=== PATIENT | female | born 1955 | race Caucasian/White ===

== ENCOUNTER 2017-06-13 12:49 | Day surgery (SDC) | payer OTHER ==
[~2017-06-13] VITALS: Ht 157.5 cm; Wt 74.1 kg
[~2017-06-13 12:49] MED LIST: IBUP400; NAPR250; Prilosec Otc20 MG; Voltaren100 GM TP
== END 2017-06-13 15:37 | disposition home or self-care (01) ==
LOC: ORSCSDS 12:49
PROVIDERS: Internal Medicine Gastroenterology
PROC: 0DB58ZX Excision of Esophagus, Via Natural or Artificial Opening Endoscopic, Diagnostic (ICD-10-PCS; principal; 2017-06-13 14:30)
PROC: 0D5H8ZZ Destruction of Cecum, Via Natural or Artificial Opening Endoscopic (ICD-10-PCS; principal; 2017-06-13 14:30)
PROC: 0DB68ZX Excision of Stomach, Via Natural or Artificial Opening Endoscopic, Diagnostic (ICD-10-PCS; principal; 2017-06-13 14:30)
DX: K62.5 Hemorrhage of anus and rectum (principal); Q27.33 Arteriovenous malformation of digestive system vessel; K64.8 Other hemorrhoids; K29.50 Unspecified chronic gastritis without bleeding; B96.81 Helicobacter pylori [H. pylori] as the cause of diseases classified elsewhere; K20.9 Esophagitis, unspecified; R10.13 Epigastric pain; Z87.891 Personal history of nicotine dependence
CPT/HCPCS: 88305; 88342; J7120

== ENCOUNTER → 2020-02-06 | Outpatient (CLI) | payer OTHER ==
[~2020-02-06] MED LIST changes: +ACET325 PO; +AMOCLA875 PO; +ATOR40TA PO; +Aspir 8181 MG PO; +COQ-10100 MG PO; +HYDSUL200 PO; +MELATONIN5 M1 PO; +MELO7.5 PO; +METO50ER PO; +Norco 5-325 Ta1 EACH PO; -Prilosec Otc20 MG; +Prilosec Otc20 MG PO; +TIZA4 PO
[2020-02-10 05:51] LABS: Stool Occult Bld Immuno 1 Negative (NEGATIVE)
== END | disposition home or self-care (01) ==
LOC: LAB SHORT 13:50 → LAB 13:50
PROVIDERS: Internal Medicine
DX: D64.9 Anemia, unspecified (principal)
CPT/HCPCS: 82274

== ENCOUNTER → 2023-03-28 | Outpatient (CLI) | payer MEDICARE, BC | LOC: LAB 08:21 → LAB SHORT 08:21 | DX: N39.0 Urinary tract infection, site not specified (principal) | CPT/HCPCS: 87086 ==

== ENCOUNTER → 2023-06-24 | Outpatient (CLI) | payer MEDICARE, BC | LOC: LAB SHORT 13:04 → LAB 13:04 | DX: R30.0 Dysuria (principal) | CPT/HCPCS: 87077; 87086; 87186 ==

== ENCOUNTER → 2023-07-09 | Outpatient (CLI) | payer MEDICARE, BC | LOC: LAB SHORT 08:09 → LAB 08:09 | DX: B35.1 Tinea unguium (principal); L60.2 Onychogryphosis | CPT/HCPCS: 88305; 88312 ==

== ENCOUNTER 2024-01-08 06:22 | Day surgery (SDC) | payer MEDICARE, BC ==
[~2024-01-08] VITALS: Ht 157.5 cm; Wt 76.1 kg
[~2024-01-08 06:22] MED LIST changes: +FERSU300 PO; +METO100ER PO; +Nexium40 MG PO; +ONDA4ODT MM
[2024-01-08] MEDS ORDERED: ERGO400 (07:21)
[2024-01-08] MEDS ORDERED: ALUM-MAG HYDROX30 M1 (07:21)
[2024-01-08] MEDS ORDERED: Lactated Ringer's 1,000 ML IV ONE ×2 (07:47→07:55)
[2024-01-08] MEDS ORDERED: propofoL 50 ML IV ONE (07:47)
[2024-01-08 09:13] VITALS: BP 117/92
== END 2024-01-08 09:10 | disposition home or self-care (01) ==
LOC: ORSCSDS 06:22
PROVIDERS: Surgery
PROC: 0DB68ZX Excision of Stomach, Via Natural or Artificial Opening Endoscopic, Diagnostic (ICD-10-PCS; principal; 2024-01-08 08:00)
PROC: 0DJD8ZZ Inspection of Lower Intestinal Tract, Via Natural or Artificial Opening Endoscopic (ICD-10-PCS; principal; 2024-01-08 08:00)
DX: D50.9 Iron deficiency anemia, unspecified (principal); R10.9 Unspecified abdominal pain; I10 Essential (primary) hypertension; Z79.82 Long term (current) use of aspirin; Z79.899 Other long term (current) drug therapy
CPT/HCPCS: 88305; 88342; J2704; J7120

== ENCOUNTER → 2024-03-22 | Outpatient (CLI) | payer MEDICARE, BC ==
[~2024-03-22] MED LIST changes: +ALUM-MAG HYDROX30 M1; +ERGO400
== END | disposition home or self-care (01) ==
LOC: LAB 11:40 → LAB SHORT 11:40
DX: R30.0 Dysuria (principal)
CPT/HCPCS: 87086

== ENCOUNTER → 2024-05-31 | Outpatient (CLI) | payer MEDICARE, BC | END | disposition home or self-care (01) | LOC: LAB SHORT 09:00 → LAB 09:00 | DX: R30.0 Dysuria (principal) | CPT/HCPCS: 87086 ==

== ENCOUNTER → 2024-07-24 | Outpatient (CLI) | payer MEDICARE, BC ==
[2024-07-24 12:36] LABS: Stool Occult Bld Immuno 1 Negative (NEGATIVE)
== END ==
LOC: LAB SHORT 08:00 → LAB 08:00
PROVIDERS: Internal Medicine
DX: D53.9 Nutritional anemia, unspecified (principal)
CPT/HCPCS: 82274

== ENCOUNTER → 2024-07-29 | Outpatient (CLI) | payer MEDICARE, BC ==
[2024-07-29 15:45] LABS: Bacterial Vaginosis PCR Negative (NEGATIVE); Candida Group, PCR DETECTED (NOT DETECT); Candida glabrata-krusei, PCR NOT DETECTED (NOT DETECT)
== END ==
LOC: LAB 11:15 → LAB SHORT 11:15
PROVIDERS: Internal Medicine
DX: N95.0 Postmenopausal bleeding (principal)
CPT/HCPCS: 81515